=== PATIENT | female | born 1990 | race African-American/Black ===

== ENCOUNTER 2017-01-31 16:32 | Emergency (ER) | payer MEDICAID ==
[~2017-01-31] VITALS: Ht 162.6 cm; Wt 91.0 kg
[2017-01-31 22:30] VITALS: BP 123/74
[2017-01-31] MEDS ORDERED: IBUPROFEN 800MG TABLET PO ONE (22:30)
== END 2017-01-31 22:41 | disposition left against medical advice (07) ==
LOC: ER 16:32
DX: M79.672 Pain in left foot (principal); X58.XXXA Exposure to other specified factors, initial encounter; Y93.89 Activity, other specified; Y92.89 Other specified places as the place of occurrence of the external cause; Y99.8 Other external cause status
CPT/HCPCS: 99281; 99282